=== PATIENT | male | born 1950 | race Caucasian/White ===

== ENCOUNTER 2018-12-04 16:06 | Emergency (ER) | payer OTHER ==
[~2018-12-04] VITALS: Ht 175.3 cm; Wt 77.6 kg
--- NOTE | 2018-12-04 16:06 | NUR ---
PT BIBPA FOR LUE BLEEDING AV FISTULA S/P DIALYSIS TODAY.; PT AAOX4, PT ON MONITOR, VSS, DINO FARAH MD AT BEDSIDE FOR EVAL
[2018-12-04] MEDS ORDERED: LIDOCAINE 1%-EPI 1:100,000 20 ML VIAL ONE (16:28)
[2018-12-04] MEDS ORDERED: oxyCODONE/APAP (5/325 MG) 1 UDTAB TABLET ONE (16:53)
[2018-12-04] MEDS ORDERED: oxyCODONE/APAP (5/325 MG) 1 UDTAB TABLET PO ONE (17:00)
[2018-12-04] MEDS ORDERED: LIDOCAINE 2%-EPI 1:100,000 30 ML VIAL ONE (17:10)
[2018-12-04 17:37] LABS: BASOPHILS # (AUTO) 0.2 /CMM (0.0-0.2); BASOPHILS % (AUTO) 3.8 % (0.0-2.0); HEMATOCRIT 31 % (39-51); HEMOGLOBIN 10.4 g/dL (13.5-17.5); LYMPHOCYTES # (AUTO) 0.8 /CMM (0.8-4.8); MEAN CORPUSCULAR HGB CONC 34 g/dl (31.0-36.0); MEAN CORPUSCULAR VOLUME 107 fL (80-96); MONOCYTES # (AUTO) 0.4 /CMM (0.1-1.30); MONOCYTES % (AUTO) 5.9 % (2.0-12.0); NEUTROPHILS # (AUTO) 4.6 /CMM (1.8-8.9); NEUTROPHILS % (AUTO) 71.3 % (43.0-81.0); PLATELET COUNT (AUTO) 95 /CMM (150-450); RED BLOOD CELL COUNT(AUTO) 2.88 MIL/uL (4.5-6.0); WHITE BLOOD COUNT (AUTO) 6.4 K/uL (4.3-11.0)
[2018-12-04 17:46] LABS: CALCIUM, SERUM 9.1 mg/dL (8.5-10.1); CREATININE 3.9 mg/dL (0.6-1.3); POTASSIUM 4.1 mmol/L (3.5-5.1)
[2018-12-04 17:51] LABS: ALBUMIN 3.5 g/dL (3.4-5.0); BILIRUBIN,DIRECT 0.5 mg/dL (0.0-0.2); BILIRUBIN,TOTAL 1.1 mg/dL (0.2-1.0); TOTAL PROTEIN, SERUM 7.5 g/dL (6.4-8.2)
[2018-12-04] MEDS ORDERED: EZET10TA14 PO (17:52)
[2018-12-04] MEDS ORDERED: CARV12.52 PO (17:52)
[2018-12-04] MEDS ORDERED: FINA5TAB11 PO (17:52)
[2018-12-04] MEDS ORDERED: HYDR-4075 PO (17:52)
[2018-12-04] MEDS ORDERED: ISOS30TA6 PO (17:52)
[2018-12-04] MEDS ORDERED: CALC-7 PO (17:52)
[2018-12-04] MEDS ORDERED: INSU100V7 SQ (17:52)
[2018-12-04] MEDS ORDERED: MAGN400T26 PO (17:52)
[2018-12-04] MEDS ORDERED: ASPI-1169 PO (17:52)
[2018-12-04] MEDS ORDERED: ACETAMINOPHEN 325 MG TABLET PO PRN (19:00)
[2018-12-04] MEDS ORDERED: INSULIN REGULAR, HUMAN 100 UNIT/ML 3 ML VIAL SQ PRN (19:00)
[2018-12-04] MEDS ORDERED: MAGNESIUM HYDROXIDE 30 ML UDC PO PRN (19:00)
[2018-12-04] MEDS ORDERED: HYDROCODONE/APAP 5/325MG 1 EACH TABLET PO PRN (19:00)
[2018-12-04] MEDS ORDERED: ONDANSETRON HCL/PF 4 MG/2 ML VIAL IVP PRN (19:00)
[2018-12-04] MEDS ORDERED: hydrALAZINE HCL 10 MG TABLET PO PRN (19:00)
[2018-12-04] MEDS ORDERED: Z GUARD REMEDY 2 OZ OINT TP PRN (19:00)
[2018-12-04] MEDS ORDERED: MAG HYDROX/AL HYDROX/SIMETH 30 ML UDC PO PRN (19:00)
[2018-12-04] MEDS ORDERED: DEXTROSE 50%-WATER 50 ML DISP.SYRIN IV PRN (19:00)
--- NOTE | 2018-12-04 19:06 | NUR ---
Harper staley in [facility] - 12/04/18 at 1907 by ANTHONY REPORT GIVEN TO REX SMITH FOR [facility]
--- NOTE | 2018-12-04 19:31 | NUR ---
CALLED FOR REPORT; NURSE NOT AVAILABLE
--- NOTE | 2018-12-04 19:49 | NUR ---
REPORT GIVEN REX GRIMM
--- NOTE | 2018-12-04 21:52 | NUR ---
REPORT GIVEN TO KATLIN CAMPOS AT [facility]
[2018-12-04] MEDS ORDERED: BLOOD SUGAR DIAGNOSTIC 1 EACH STRIP IN SCH (22:00)
[2018-12-04] MEDS ORDERED: INSULIN GLARGINE HUM REC ANLOG 14 UNIT SQ SCH (22:00)
--- NOTE | 2018-12-04 22:08 | NUR ---
[facility] CALLED FOR TRANSPORT. ETA 0030 TRIP#[id number]
[2018-12-04 22:23] VITALS: BP 126/58
--- NOTE | 2018-12-05 01:15 | NUR ---
PT TRANSPORTED VIA PRIVATE AMBULANE TO [facility]; PT LEFT IN STABLE CONDITION; VSS; NAD NOTED.
[2018-12-05] MEDS ORDERED: CARVEDILOL 12.5 MG TABLET PO SCH (09:00)
[2018-12-05] MEDS ORDERED: EZETIMIBE 10 MG TABLET PO SCH (09:00)
[2018-12-05] MEDS ORDERED: FINASTERIDE (5 MG) 5 MG TABLET PO SCH (09:00)
[2018-12-05] MEDS ORDERED: CALCIUM CARB 250MG /VITAMIN D 1 UDTAB PO SCH (09:00)
[2018-12-05] MEDS ORDERED: hydrALAZINE HCL 10 MG TABLET PO ONE (09:00)
[2018-12-05] MEDS ORDERED: MAGNESIUM OXIDE 400 MG TABLET PO SCH (09:00)
[2018-12-05] MEDS ORDERED: ISOSORBIDE MONONITRATE (30MG) 30 MG TAB.SR.24H PO SCH (09:00)
== END 2018-12-05 01:34 | disposition short-term general hospital (02) ==
LOC: ER 16:10
DX: T82.838A Hemorrhage due to vascular prosthetic devices, implants and grafts, initial encounter (principal); E11.22 Type 2 diabetes mellitus with diabetic chronic kidney disease; I12.0 Hypertensive chronic kidney disease with stage 5 chronic kidney disease or end stage renal disease; N18.6 End stage renal disease; D64.9 Anemia, unspecified; Z99.2 Dependence on renal dialysis; Z95.1 Presence of aortocoronary bypass graft; Z88.6 Allergy status to analgesic agent; Z60.2 Problems related to living alone; Z79.82 Long term (current) use of aspirin; Z79.4 Long term (current) use of insulin
CPT/HCPCS: 36415; 80048; 80076; 83690; 85025; 85730; 86850; 87081; 99291; A4606; A6253 ×2; A6402 ×3; A6403 ×2; J1815; J3490 ×2